=== PATIENT | male | born 1940 | race Caucasian/White ===

== ENCOUNTER → 2016-08-22 | Outpatient (CLI) | payer MEDICARE, OTHER ==
[2016-08-22 12:14] LABS: Basophils # (auto) 0 uL; Basophils % (auto) 0.5 % (0.0-2.0); Eosinophils # (auto) 0.1 uL; Eosinophils % (auto) 1.5 % (0.0-7.0); Hematocrit 46.5 % (41.0-53.0); Hemoglobin 15.2 g/dL (13.5-17.5); Lymphocytes # (auto) 1.6 uL; Lymphocytes % (auto) 27.1 % (10.0-50.0); Mean Corpuscular Hemoglobin 29.1 pg (28.0-32.0); Mean Corpuscular Hgb Conc. 32.6 g/dL (32.0-36.0); Mean Corpuscular Volume 89.3 fL (80.0-100.0); Mean Platelet Volume 9.8 fL (7.4-10.4); Monocytes # (auto) 0.6 uL; Monocytes % (auto) 9.6 % (0.0-12.0); Neutrophils # (auto) 3.6 uL; Neutrophils % (auto) 61.3 % (37.0-80.0); Platelet Count (auto) 271 10^3/uL (140-450); Red Cell Distribution Width 14.5 % (11.6-16.0); White Blood Cell 5.9 10^3/uL (4.4-10.8)
[2016-08-22 15:35] LABS: Albumin 4.3 g/dL (3.4-5.0); BUN/Creatinine Ratio 10.6; Bilirubin, Total 0.9 mg/dL (0.2-1.0); Calcium 9.1 mg/dL (8.5-10.1); Potassium 4.6 mmol/L (3.5-5.1); Total Protein 8.2 g/dL (6.4-8.2)
[2016-08-22 15:56] LABS: Bilirubin, Direct 0.3 mg/dL (0-0.2)
== END | disposition home or self-care (01) ==
LOC: LAB 08:02
PROVIDERS: ATTEND Internal Medicine Cardiovascular Disease
DX: I10 Essential (primary) hypertension (principal); E78.00 Pure hypercholesterolemia, unspecified; K74.1 Hepatic sclerosis; E11.9 Type 2 diabetes mellitus without complications; R97.20 Elevated prostate specific antigen [PSA]; R53.81 Other malaise; E03.9 Hypothyroidism, unspecified; D64.9 Anemia, unspecified; E55.9 Vitamin D deficiency, unspecified; N39.0 Urinary tract infection, site not specified
CPT/HCPCS: 36415; 80048; 80061; 80076; 83036; 84153; 84403; 84439; 84443; 85025

== ENCOUNTER → 2017-01-14 | Outpatient (CLI) | payer MEDICARE, OTHER ==
[2017-01-14 13:44] LABS: Calcium 9.2 mg/dL (8.5-10.1); Magnesium 2.2 mg/dL (1.6-2.6); Potassium 4.3 mmol/L (3.5-5.1)
== END | disposition home or self-care (01) ==
LOC: LAB 10:41
PROVIDERS: ATTEND Internal Medicine Cardiovascular Disease
DX: I10 Essential (primary) hypertension (principal); E83.42 Hypomagnesemia; R53.81 Other malaise
CPT/HCPCS: 36415; 80048; 83735; 84403

== ENCOUNTER → 2017-07-08 | Outpatient (CLI) | payer MEDICARE, OTHER ==
[2017-07-08 12:48] LABS: Urine Blood Negative /uL (Negative); Urine Specific Gravity 1.027 (1.001-1.035)
[2017-07-08 12:49] LABS: Basophils # (auto) 0 uL; Basophils % (auto) 0.8 % (0.0-2.0); Eosinophils # (auto) 0.1 uL; Eosinophils % (auto) 1.7 % (0.0-7.0); Hematocrit 44.7 % (41.0-53.0); Hemoglobin 14.9 g/dL (13.5-17.5); Lymphocytes # (auto) 1.7 uL; Lymphocytes % (auto) 30.2 % (10.0-50.0); Mean Corpuscular Hemoglobin 29.1 pg (28.0-32.0); Mean Corpuscular Hgb Conc. 33.3 g/dL (32.0-36.0); Mean Corpuscular Volume 87.6 fL (80.0-100.0); Monocytes # (auto) 0.8 uL; Monocytes % (auto) 13.7 % (0.0-12.0); Neutrophils % (auto) 53.6 % (37.0-80.0); Nucleated Red Blood Cells % 0.5 %; Platelet Count (auto) 205 10^3/uL (140-450); Red Blood Cells 5.11 10^6/uL (4.5-5.90); Red Cell Distribution Width 15.9 % (11.8-14.3); White Blood Cell 5.7 10^3/uL (4.4-10.8)
[2017-07-08 13:32] LABS: BUN/Creatinine Ratio 12.3; Bilirubin, Direct 0.1 mg/dL (0-0.2); Bilirubin, Total 0.4 mg/dL (0.2-1.0); Calcium 9.7 mg/dL (8.5-10.1); Potassium 4.4 mmol/L (3.5-5.1); Total Protein 7.6 g/dL (6.4-8.2)
== END | disposition home or self-care (01) ==
LOC: LAB 09:25
PROVIDERS: ATTEND Internal Medicine Cardiovascular Disease
DX: E78.00 Pure hypercholesterolemia, unspecified (principal); D64.9 Anemia, unspecified; I10 Essential (primary) hypertension; E11.9 Type 2 diabetes mellitus without complications; E55.9 Vitamin D deficiency, unspecified; E03.9 Hypothyroidism, unspecified; R53.81 Other malaise; R97.20 Elevated prostate specific antigen [PSA]; N39.0 Urinary tract infection, site not specified; K74.1 Hepatic sclerosis
CPT/HCPCS: 36415; 80048; 80061; 80076; 81003; 82306; 83036; 84153; 84443; 85025

== ENCOUNTER → 2017-08-21 | Outpatient (CLI) | payer MEDICARE, OTHER | END | disposition home or self-care (01) | LOC: Rad HDHVI 14:53 | PROVIDERS: ATTEND Internal Medicine Cardiovascular Disease | DX: R42 Dizziness and giddiness (principal); R55 Syncope and collapse; I10 Essential (primary) hypertension; E11.9 Type 2 diabetes mellitus without complications; E78.00 Pure hypercholesterolemia, unspecified; E78.5 Hyperlipidemia, unspecified | CPT/HCPCS: 93880 ==

== ENCOUNTER → 2017-10-21 | Outpatient (CLI) | payer MEDICARE, OTHER ==
[~2017-10-21] VITALS: Ht 188 cm; Wt 112.5 kg
== END | disposition home or self-care (01) ==
LOC: Rad HDHVI 09:23
PROVIDERS: ATTEND Internal Medicine
DX: I10 Essential (primary) hypertension (principal); E78.5 Hyperlipidemia, unspecified; E11.9 Type 2 diabetes mellitus without complications; H26.9 Unspecified cataract; I48.91 Unspecified atrial fibrillation
CPT/HCPCS: 78452; 93017; 96374; A9500

== ENCOUNTER → 2018-05-21 | Outpatient (CLI) | payer MEDICARE, OTHER ==
[2018-05-21 12:04] LABS: Basophils # (auto) 0.1 uL; Basophils % (auto) 1.2 % (0.0-2.0); Eosinophils # (auto) 0.1 uL; Eosinophils % (auto) 2.8 % (0.0-7.0); Hematocrit 45.1 % (41.0-53.0); Hemoglobin 14.7 g/dL (13.5-17.5); Lymphocytes # (auto) 1.1 uL; Lymphocytes % (auto) 23.3 % (10.0-50.0); Mean Corpuscular Hemoglobin 29.1 pg (28.0-32.0); Mean Corpuscular Hgb Conc. 32.6 g/dL (32.0-36.0); Mean Corpuscular Volume 89.4 fL (80.0-100.0); Monocytes # (auto) 0.6 uL; Monocytes % (auto) 11.5 % (0.0-12.0); Neutrophils % (auto) 61.2 % (37.0-80.0); Nucleated Red Blood Cells % 0.2 %; Platelet Count (auto) 165 10^3/uL (140-450); Red Blood Cells 5.05 10^6/uL (4.5-5.90); Red Cell Distribution Width 15.3 % (11.8-14.3); White Blood Cell 4.8 10^3/uL (4.4-10.8)
[2018-05-21 12:11] LABS: Potassium 4.5 mmol/L (3.5-5.1)
[2018-05-21 12:16] LABS: Free T4 (Free Thyroxine) 0.47 ng/dL (0.89-1.76); Prostate Specific Antigen 0.35 ng/mL (0.0-4.0)
[2018-05-21 12:22] LABS: BUN/Creatinine Ratio 8.2; Bilirubin, Direct 0.2 mg/dL (0-0.2); Bilirubin, Total 0.7 mg/dL (0.2-1.0)
== END | disposition home or self-care (01) ==
LOC: LAB 10:41
PROVIDERS: ATTEND Internal Medicine Cardiovascular Disease
DX: E78.5 Hyperlipidemia, unspecified (principal); E03.9 Hypothyroidism, unspecified; E55.9 Vitamin D deficiency, unspecified; E11.9 Type 2 diabetes mellitus without complications; C61 Malignant neoplasm of prostate; K74.1 Hepatic sclerosis; I10 Essential (primary) hypertension; D51.9 Vitamin B12 deficiency anemia, unspecified; D64.9 Anemia, unspecified
CPT/HCPCS: 36415; 80048; 80061; 80076; 82306; 83036; 84153; 84403; 84439; 84443; 85025

== ENCOUNTER → 2018-07-09 | Outpatient (CLI) | payer MEDICARE, BC | END | disposition home or self-care (01) | LOC: LAB 12:03 | PROVIDERS: ATTEND Internal Medicine Cardiovascular Disease | DX: E03.9 Hypothyroidism, unspecified (principal) | CPT/HCPCS: 36415; 84439; 84443 ==

== ENCOUNTER → 2018-09-24 | Outpatient (CLI) | payer MEDICARE, BC | END | disposition home or self-care (01) | LOC: LAB 08:54 | PROVIDERS: ATTEND Internal Medicine Cardiovascular Disease | DX: E03.9 Hypothyroidism, unspecified (principal) | CPT/HCPCS: 36415; 84443 ==

== ENCOUNTER → 2019-02-06 | Outpatient (CLI) | payer MEDICARE, BC ==
[2019-02-06 13:01] LABS: Urine Blood Negative /uL (Negative); Urine Specific Gravity 1.018 (1.001-1.035)
[2019-02-06 13:08] LABS: Basophils # (auto) 0 uL; Basophils % (auto) 1.1 % (0.0-2.0); Eosinophils # (auto) 0.1 uL; Eosinophils % (auto) 2.6 % (0.0-7.0); Hematocrit 41.6 % (41.0-53.0); Hemoglobin 13.9 g/dL (13.5-17.5); Lymphocytes # (auto) 1.2 uL; Lymphocytes % (auto) 28.8 % (10.0-50.0); Mean Corpuscular Hemoglobin 30.6 pg (28.0-32.0); Mean Corpuscular Hgb Conc. 33.5 g/dL (32.0-36.0); Mean Corpuscular Volume 91.1 fL (80.0-100.0); Monocytes # (auto) 0.5 uL; Monocytes % (auto) 11.9 % (0.0-12.0); Neutrophils # (auto) 2.3 uL; Neutrophils % (auto) 55.6 % (37.0-80.0); Nucleated Red Blood Cells % 0.1 %; Platelet Count (auto) 117 10^3/uL (140-450); Red Blood Cells 4.56 10^6/uL (4.5-5.90); Red Cell Distribution Width 15.1 % (11.8-14.3); White Blood Cell 4.2 10^3/uL (4.4-10.8)
[2019-02-06 16:22] LABS: Free T4 (Free Thyroxine) 1.06 ng/dL (0.89-1.76)
[2019-02-06 16:32] LABS: Prostate Specific Antigen 0.47 ng/mL (0.0-4.0)
== END | disposition home or self-care (01) ==
LOC: LAB 08:25
PROVIDERS: ATTEND Internal Medicine Cardiovascular Disease
DX: E03.9 Hypothyroidism, unspecified (principal); K90.9 Intestinal malabsorption, unspecified; C61 Malignant neoplasm of prostate; E29.1 Testicular hypofunction; N39.0 Urinary tract infection, site not specified; E11.9 Type 2 diabetes mellitus without complications; D51.9 Vitamin B12 deficiency anemia, unspecified; Z79.899 Other long term (current) drug therapy
CPT/HCPCS: 36415; 80053; 80061; 81003; 82306; 82607; 83036; 84153; 84403; 84439; 84443; 85025

== ENCOUNTER → 2019-07-10 | Outpatient (CLI) | payer MEDICARE, BC ==
[2019-07-10 12:14] LABS: Urine Blood Negative /uL (Negative); Urine Specific Gravity 1.019 (1.001-1.035)
[2019-07-10 12:18] LABS: Basophils # (auto) 0 uL; Basophils % (auto) 0.9 % (0.0-2.0); Eosinophils # (auto) 0.1 uL; Eosinophils % (auto) 2.2 % (0.0-7.0); Hemoglobin 13.6 g/dL (13.5-17.5); Lymphocytes # (auto) 1.2 uL; Lymphocytes % (auto) 31.7 % (10.0-50.0); Mean Corpuscular Hemoglobin 30.2 pg (28.0-32.0); Mean Corpuscular Hgb Conc. 33.1 g/dL (32.0-36.0); Mean Corpuscular Volume 91.2 fL (80.0-100.0); Monocytes # (auto) 0.5 uL; Monocytes % (auto) 13.3 % (0.0-12.0); Neutrophils % (auto) 51.9 % (37.0-80.0); Platelet Count (auto) 106 10^3/uL (140-450); Red Cell Distribution Width 14.8 % (11.8-14.3); White Blood Cell 3.8 10^3/uL (4.4-10.8)
[2019-07-10 12:37] LABS: Albumin 3.5 g/dL (3.4-5.0); Potassium 4.3 mmol/L (3.5-5.1)
[2019-07-10 12:41] LABS: Free T4 (Free Thyroxine) 1.3 ng/dL (0.89-1.76)
[2019-07-10 12:42] LABS: Prostate Specific Antigen 0.53 ng/mL (0.0-4.0)
[2019-07-10 12:44] LABS: BUN/Creatinine Ratio 11.3; Bilirubin, Total 0.4 mg/dL (0.2-1.0); Calcium 8.8 mg/dL (8.5-10.1); Total Protein 7.4 g/dL (6.4-8.2)
== END | disposition home or self-care (01) ==
LOC: LAB 08:01
PROVIDERS: ATTEND Internal Medicine Cardiovascular Disease
DX: C61 Malignant neoplasm of prostate (principal); E03.9 Hypothyroidism, unspecified; K90.9 Intestinal malabsorption, unspecified; E29.1 Testicular hypofunction; N39.0 Urinary tract infection, site not specified; D51.9 Vitamin B12 deficiency anemia, unspecified; Z79.899 Other long term (current) drug therapy
CPT/HCPCS: 36415; 80053; 80061; 81003; 82306; 82607; 83036; 84153; 84403; 84439; 84443; 85025

== ENCOUNTER → 2019-12-03 | Outpatient (CLI) | payer MEDICARE, BC | END | disposition home or self-care (01) | LOC: Rad HDHVI 08:00 | PROVIDERS: ATTEND Internal Medicine Cardiovascular Disease | DX: R00.2 Palpitations (principal); R07.89 Other chest pain; Z86.79 Personal history of other diseases of the circulatory system | CPT/HCPCS: 93306 ==

== ENCOUNTER → 2019-12-22 | Outpatient (CLI) | payer MEDICARE, BC ==
[~2019-12-22] VITALS: Ht 188 cm; Wt 111.1 kg
== END | disposition home or self-care (01) ==
LOC: Rad HDHVI 08:49
PROVIDERS: ATTEND Internal Medicine Cardiovascular Disease
DX: I10 Essential (primary) hypertension (principal); E11.9 Type 2 diabetes mellitus without complications; E78.00 Pure hypercholesterolemia, unspecified; R00.2 Palpitations; Z90.49 Acquired absence of other specified parts of digestive tract
CPT/HCPCS: 78452; 93017; 96374; A9500

== ENCOUNTER → 2020-08-29 | Outpatient (CLI) | payer MEDICARE, BC ==
[2020-08-29 12:36] LABS: Basophils # (auto) 0 10 ^3/uL (0-0.2); Eosinophils # (auto) 0.1 10 ^3/uL (0-0.8); Eosinophils % (auto) 2.9 % (0.0-7.0); Hematocrit 36.7 % (41.0-53.0); Hemoglobin 12.5 g/dL (13.5-17.5); Lymphocytes # (auto) 1.2 10 ^3/uL (0.4-5.4); Lymphocytes % (auto) 30.2 % (10.0-50.0); Mean Corpuscular Hgb Conc. 33.9 g/dL (32.0-36.0); Mean Corpuscular Volume 88.5 fL (80.0-100.0); Monocytes # (auto) 0.6 10 ^3/uL (0-1.3); Monocytes % (auto) 14.4 % (0.0-12.0); Neutrophils % (auto) 51.5 % (37.0-80.0); Nucleated Red Blood Cells % 0.1 %; Platelet Count (auto) 108 10^3/uL (140-450); Red Blood Cells 4.15 10^6/uL (4.5-5.90); Red Cell Distribution Width 15.7 % (11.8-14.3); White Blood Cell 3.9 10^3/uL (4.4-10.8)
[2020-08-29 12:44] LABS: Urine Blood Negative /uL (Negative); Urine Specific Gravity 1.012 (1.001-1.035)
[2020-08-29 12:51] LABS: Free T4 (Free Thyroxine) 0.91 ng/dL (0.89-1.76); Prostate Specific Antigen 0.36 ng/mL (0.0-4.0)
[2020-08-29 12:56] LABS: Albumin 3.7 g/dL (3.4-5.0); BUN/Creatinine Ratio 14.5; Bilirubin, Total 0.5 mg/dL (0.2-1.0); Calcium 9.6 mg/dL (8.5-10.1); Total Protein 7.6 g/dL (6.4-8.2)
== END | disposition home or self-care (01) ==
LOC: LAB 09:22
PROVIDERS: ATTEND Internal Medicine Cardiovascular Disease
DX: C61 Malignant neoplasm of prostate (principal); D51.3 Other dietary vitamin B12 deficiency anemia; I10 Essential (primary) hypertension; E11.9 Type 2 diabetes mellitus without complications; E55.9 Vitamin D deficiency, unspecified; D64.9 Anemia, unspecified; R00.2 Palpitations; R53.1 Weakness; R30.0 Dysuria
CPT/HCPCS: 36415; 80053; 80061; 81003; 82306; 82607; 83036; 84153; 84403; 84439; 84443; 85025

== ENCOUNTER → 2021-05-17 | Outpatient (CLI) | payer MEDICARE, BC ==
[~2021-05-17] VITALS: Ht 188 cm; Wt 111.1 kg
== END | disposition home or self-care (01) ==
LOC: Rad HDHVI 09:31
PROVIDERS: ATTEND Internal Medicine Cardiovascular Disease
DX: I48.91 Unspecified atrial fibrillation (principal); E11.9 Type 2 diabetes mellitus without complications; I10 Essential (primary) hypertension; E78.5 Hyperlipidemia, unspecified
CPT/HCPCS: 78452; 93017; 96374; A9500

== ENCOUNTER → 2021-06-26 | Outpatient (CLI) | payer MEDICARE, BC ==
[2021-06-26 09:34] LABS: Urine Blood Negative /uL (Negative); Urine Specific Gravity 1.013 (1.001-1.035)
[2021-06-26 09:41] LABS: Potassium 4.4 mmol/L (3.5-5.1)
[2021-06-26 09:52] LABS: Albumin 3.4 g/dL (3.4-5.0); BUN/Creatinine Ratio 8.5; Bilirubin, Total 0.5 mg/dL (0.2-1.0); Calcium 9.4 mg/dL (8.5-10.1); Total Protein 7.2 g/dL (6.4-8.2)
[2021-06-26 09:59] LABS: Basophils # (auto) 0 10 ^3/uL (0-0.2); Basophils % (auto) 1.2 % (0.0-2.0); Eosinophils # (auto) 0.1 10 ^3/uL (0-0.8); Eosinophils % (auto) 2.4 % (0.0-7.0); Hematocrit 35.1 % (41.0-53.0); Hemoglobin 11.6 g/dL (13.5-17.5); Lymphocytes # (auto) 0.9 10 ^3/uL (0.4-5.4); Lymphocytes % (auto) 26.4 % (10.0-50.0); Mean Corpuscular Hemoglobin 28.2 pg (28.0-32.0); Mean Corpuscular Hgb Conc. 32.9 g/dL (32.0-36.0); Mean Corpuscular Volume 85.7 fL (80.0-100.0); Monocytes # (auto) 0.5 10 ^3/uL (0-1.3); Monocytes % (auto) 14.3 % (0.0-12.0); Neutrophils # (auto) 1.8 10 ^3/uL (1.6-8.6); Neutrophils % (auto) 55.7 % (37.0-80.0); Nucleated Red Blood Cells % 0.2 %; Red Cell Distribution Width 16.4 % (11.8-14.3); White Blood Cell 3.3 10^3/uL (4.4-10.8)
[2021-06-26 10:01] LABS: INR 1.1 (0.9-1.15)
[2021-06-26 10:46] LABS: Prostate Specific Antigen 0.39 ng/mL (0.0-4.0)
[2021-06-27 13:28] LABS: Free T4 (Free Thyroxine) 1.12 ng/dL (0.89-1.76)
== END | disposition home or self-care (01) ==
LOC: LAB 08:21
PROVIDERS: ATTEND Internal Medicine Cardiovascular Disease
DX: C61 Malignant neoplasm of prostate (principal); E11.9 Type 2 diabetes mellitus without complications; D51.3 Other dietary vitamin B12 deficiency anemia; D64.9 Anemia, unspecified; E55.9 Vitamin D deficiency, unspecified; I10 Essential (primary) hypertension; I48.91 Unspecified atrial fibrillation; R00.2 Palpitations; R53.1 Weakness; R30.0 Dysuria
CPT/HCPCS: 36415; 80053; 80061; 81003; 82306; 82607; 83036; 84153; 84403; 84439; 84443; 85025; 85610; 85730

== ENCOUNTER → 2022-06-25 | Outpatient (CLI) | payer MEDICARE, BC | END | disposition home or self-care (01) | LOC: Rad HDHVI 11:16 | PROVIDERS: ATTEND Internal Medicine Cardiovascular Disease | DX: R06.02 Shortness of breath (principal); I70.0 Atherosclerosis of aorta; M47.814 Spondylosis without myelopathy or radiculopathy, thoracic region | CPT/HCPCS: 71046 ==

== ENCOUNTER → 2022-06-26 | Outpatient (CLI) | payer MEDICARE, BC ==
[2022-06-26 15:35] LABS: Urine Blood Negative /uL (Negative); Urine Specific Gravity 1.015 (1.001-1.035)
[2022-06-26 15:43] LABS: Basophils # (auto) 0 10 ^3/uL (0-0.2); Basophils % (auto) 1.2 % (0.0-2.0); Eosinophils # (auto) 0.1 10 ^3/uL (0-0.8); Hematocrit 34.3 % (41.0-53.0); Hemoglobin 11.1 g/dL (13.5-17.5); Lymphocytes % (auto) 26.3 % (10.0-50.0); Mean Corpuscular Hemoglobin 28.1 pg (28.0-32.0); Mean Corpuscular Hgb Conc. 32.5 g/dL (32.0-36.0); Mean Corpuscular Volume 86.4 fL (80.0-100.0); Monocytes # (auto) 0.5 10 ^3/uL (0-1.3); Monocytes % (auto) 13.7 % (0.0-12.0); Neutrophils % (auto) 55.8 % (37.0-80.0); Nucleated Red Blood Cells % 0.1 %; Red Blood Cells 3.97 10^6/uL (4.5-5.90); Red Cell Distribution Width 17.1 % (11.8-14.3); White Blood Cell 3.7 10^3/uL (4.4-10.8)
[2022-06-26 15:51] LABS: Potassium 4.1 mmol/L (3.5-5.1)
[2022-06-26 15:57] LABS: Free T4 (Free Thyroxine) 1.05 ng/dL (0.89-1.76); Prostate Specific Antigen 0.44 ng/mL (0.0-4.0)
[2022-06-26 16:02] LABS: Albumin 3.5 g/dL (3.4-5.0); BUN/Creatinine Ratio 13.7; Bilirubin, Total 0.4 mg/dL (0.2-1.0); Total Protein 7.2 g/dL (6.4-8.2)
== END | disposition home or self-care (01) ==
LOC: LAB 08:19
PROVIDERS: ATTEND Internal Medicine Cardiovascular Disease
DX: E11.9 Type 2 diabetes mellitus without complications (principal); E55.9 Vitamin D deficiency, unspecified
CPT/HCPCS: 36415; 80053; 80061; 81003; 82306; 82607; 83036; 84153; 84403; 84439; 84443; 85025

== ENCOUNTER → 2022-06-27 | Outpatient (CLI) | payer MEDICARE, BC ==
[~2022-06-27] MED LIST: IOHEXOL 350 MG/ML 100ML IJ ONE; READI-CAT 2 (BARIUM SULF)(VANILLA SMOOTHIE) 450ML ONE; SODIUM CHLORIDE 0.9% 500 ML IV ONE
[2022-06-27 11:00] VITALS: BP 145/77
[2022-06-27 13:23] VITALS: BP 132/68
== END | disposition home or self-care (01) ==
LOC: Rad HDHVI 10:55
PROVIDERS: ATTEND Internal Medicine Cardiovascular Disease
DX: K74.60 Unspecified cirrhosis of liver (principal); N28.1 Cyst of kidney, acquired; R16.1 Splenomegaly, not elsewhere classified; K44.9 Diaphragmatic hernia without obstruction or gangrene; K40.90 Unilateral inguinal hernia, without obstruction or gangrene, not specified as recurrent; K42.9 Umbilical hernia without obstruction or gangrene; I70.0 Atherosclerosis of aorta; M47.814 Spondylosis without myelopathy or radiculopathy, thoracic region; M47.817 Spondylosis without myelopathy or radiculopathy, lumbosacral region; R63.4 Abnormal weight loss; Z90.49 Acquired absence of other specified parts of digestive tract
CPT/HCPCS: 74177; 96360; 96361; G0463; Q9967; 96366

== ENCOUNTER → 2022-07-03 | Outpatient (CLI) | payer MEDICARE, BC | END | disposition home or self-care (01) | LOC: Rad HDHVI 13:54 | PROVIDERS: ATTEND Internal Medicine Cardiovascular Disease | DX: R07.89 Other chest pain (principal); R00.2 Palpitations; R06.02 Shortness of breath | CPT/HCPCS: 93306 ==

== ENCOUNTER 2023-07-10 06:55 | Day surgery (SDC) | payer MEDICARE, BC ==
[2023-07-08 12:08] LABS: Basophils # (auto) 0 10 ^3/uL (0-0.2); Eosinophils # (auto) 0.1 10 ^3/uL (0-0.8); Hemoglobin 10.2 g/dL (13.5-17.5); Lymphocytes # (auto) 0.7 10 ^3/uL (0.4-5.4); Mean Corpuscular Hemoglobin 25.2 pg (28.0-32.0); Monocytes # (auto) 0.6 10 ^3/uL (0-1.3); Monocytes % (auto) 12.1 % (0.0-12.0); Neutrophils # (auto) 3.2 10 ^3/uL (1.6-8.6); Nucleated Red Blood Cells % 0.1 %; White Blood Cell 4.6 10^3/uL (4.4-10.8)
[2023-07-08 12:10] LABS: Eosinophils % (auto) 2.7 % (0.0-7.0); Hematocrit 32.1 % (41.0-53.0); Lymphocytes % (auto) 15.2 % (10.0-50.0); Mean Corpuscular Hgb Conc. 31.9 g/dL (32.0-36.0); Red Blood Cells 4.06 10^6/uL (4.5-5.90)
[2023-07-08 12:19] LABS: Red Cell Distribution Width 20.3 % (11.8-14.3)
[2023-07-08 12:23] LABS: INR 1.23 (0.9-1.15); Partial Thromboplastin Time 26.9 SEC (24.5-34.5); Prothrombin Time 12.7 sec (9.3-11.8)
[2023-07-08 12:27] LABS: Urine Bacteria NONE SEEN /hpf (None Seen); Urine Blood Negative /uL (Negative); Urine Clarity Clear (Clear); Urine Color Yellow (Yellow); Urine Protein, UAD Negative (Negative); Urine Specific Gravity 1.013 (1.001-1.035); Urine Urobilinogen Normal (Negative); Urine WBC 48 /hpf (0 - 3); Urine pH 6.5 (5.0-8.0)
[2023-07-08 12:54] LABS: Alanine Aminotransferase 17 U/L (7-40); Albumin 3.7 g/dL (3.2-4.8); Alkaline Phosphatase 85 U/L (46-116); Anion Gap 5 (5-15); Aspartate Aminotransferase 32 U/L (13-40); BUN/Creatinine Ratio 10.7 (10.0-20.0); Bilirubin, Total 1.4 mg/dL (0.2-1.0); Blood Urea Nitrogen 16 mg/dL (9-23); Calcium 9.6 mg/dL (8.5-10.1); Carbon Dioxide 25 mmol/L (20-30); Chloride 106 mmol/L (98-107); Glucose 98 mg/dL (74-106); Potassium 4.9 mmol/L (3.5-5.1); Sodium 136 mmol/L (136-145); Total Protein 7.2 g/dL (5.7-8.2)
[~2023-07-10] VITALS: Ht 188 cm; Wt 97.1 kg
[~2023-07-10 06:55] MED LIST changes: +APIX5TAB PO; +FINE10TA PO; -IOHEXOL 350 MG/ML 100ML IJ ONE; +LEV100T PO; +LINA1TAB PO; +METF-490 PO; +PANC3600 PO; +PANT40TA2 PO; +PROP1TAB51 PO; -READI-CAT 2 (BARIUM SULF)(VANILLA SMOOTHIE) 450ML ONE; -SODIUM CHLORIDE 0.9% 500 ML IV ONE; +SOTA80TA PO
[2023-07-10] MEDS ORDERED: ceFAZolin 2 GM/D5W100ml 100 ML IV ONE (07:42)
[2023-07-10] MEDS ORDERED: SUCCINYLCHOLINE CHLORIDE 20 MG/ML 10ML VIAL IV ONE (09:12)
[2023-07-10] MEDS ORDERED: BUPIVACAINE 0.5% P/F INJ 10 ML VIAL ONE (09:13)
[2023-07-10] MEDS ORDERED: fentaNYL CITRATE 100 MCG/2 ML VL ONE (09:14)
[2023-07-10] MEDS ORDERED: PROPOFOL 10 MG/ML 20 ML IV ONE (09:17)
[2023-07-10] MEDS ORDERED: MEPERIDINE HCL (25 MG/ML) 1ML VIAL ONE (09:41)
[2023-07-10] MEDS ORDERED: ROCURONIUM 10MG/ML 10ML VIAL IV ONE (09:43)
[2023-07-10] MEDS ORDERED: SUGAMMADEX 200mg/2ml Vial (100MG/ML) IV ONE (10:14)
[2023-07-10] MEDS ORDERED: SODIUM CHLORIDE LOCK 10 ML ONE (10:22)
[2023-07-10] MEDS ORDERED: ePHEDrine SULFATE 50 MG/ML AMP ONE (10:26)
[2023-07-10 10:42] VITALS: TEMP 97.5; O2SAT 100
[2023-07-10 11:40] VITALS: BP 134/66; PULSE 59; RESP 12; O2SAT 99
[2023-07-31] MEDS ORDERED: LINA1TAB PO ×2 (14:16)
[2023-07-31] MEDS ORDERED: CHOL50007 PO ×2 (14:16)
[2023-07-31] MEDS ORDERED: [UNRECOGNIZED DRUG - CODE] PO (14:16)
[2023-07-31] MEDS ORDERED: [UNRECOGNIZED DRUG - CODE] TOP ×2 (14:16)
[2023-07-31] MEDS ORDERED: PROP1TAB51 PO ×2 (14:16)
[2023-07-31] MEDS ORDERED: ZOLP5TAB PO ×2 (14:16)
== END 2023-07-10 11:45 | disposition home or self-care (01) ==
LOC: SUR 06:55
PROVIDERS: ATTEND Surgery
DX: K40.90 Unilateral inguinal hernia, without obstruction or gangrene, not specified as recurrent (principal); I12.9 Hypertensive chronic kidney disease with stage 1 through stage 4 chronic kidney disease, or unspecified chronic kidney disease; E11.22 Type 2 diabetes mellitus with diabetic chronic kidney disease; N18.9 Chronic kidney disease, unspecified; I48.0 Paroxysmal atrial fibrillation; Z79.890 Hormone replacement therapy; Z79.84 Long term (current) use of oral hypoglycemic drugs; Z90.49 Acquired absence of other specified parts of digestive tract; Z79.899 Other long term (current) drug therapy; Z98.890 Other specified postprocedural states
CPT/HCPCS: 36415; 49505; 80053; 81001; 82962; 85025; 85610; 85730; 86850; 86900; 86901; 88302; C1781; J0330; J2175; J2704; J3010; J3490

== ENCOUNTER → 2023-07-17 | Outpatient (CLI) | payer MEDICARE, BC ==
[~2023-07-17] VITALS: Ht 30.5 cm; Wt 0.5 kg
[~2023-07-17] MED LIST changes: +PANC3600 OR; -PANC3600 PO
[2023-07-17 10:15] VITALS: BP 130/82; PULSE 96; RESP 18; O2SAT 96
[2023-07-17] MEDS: cefTRIAXone 1GM/50ML D5W 50 ML IV ONE ×2 (10:38)
[2023-07-17 10:54] VITALS: BP 125/66; PULSE 63; RESP 18; O2SAT 96
== END | disposition home or self-care (01) ==
LOC: CHF HDHVI 10:15
PROVIDERS: ATTEND Internal Medicine Cardiovascular Disease
DX: T81.49XA Infection following a procedure, other surgical site, initial encounter (principal); I12.9 Hypertensive chronic kidney disease with stage 1 through stage 4 chronic kidney disease, or unspecified chronic kidney disease; E11.22 Type 2 diabetes mellitus with diabetic chronic kidney disease; N18.9 Chronic kidney disease, unspecified; I48.0 Paroxysmal atrial fibrillation; Z79.84 Long term (current) use of oral hypoglycemic drugs; Z79.899 Other long term (current) drug therapy; Z90.49 Acquired absence of other specified parts of digestive tract; Y92.89 Other specified places as the place of occurrence of the external cause
CPT/HCPCS: 96365; G0463; J0696

== ENCOUNTER → 2023-07-31 | Outpatient (CLI) | payer MEDICARE, BC ==
[~2023-07-31] MED LIST changes: +CHOL50007 PO; -PANC3600 OR; +PANC3600 PO; +ZOLP5TAB PO; +[UNRECOGNIZED DRUG - CODE] PO; +[UNRECOGNIZED DRUG - CODE] TOP
[2023-07-31 14:15] VITALS: BP 137/63; PULSE 62; RESP 16; O2SAT 97
[2023-07-31 14:22] VITALS: BP 139/69; PULSE 60; RESP 16; O2SAT 97
== END | disposition home or self-care (01) ==
LOC: CHF HDHVI 14:14
PROVIDERS: ATTEND Internal Medicine Cardiovascular Disease
DX: Z01.818 Encounter for other preprocedural examination (principal); I48.91 Unspecified atrial fibrillation; R94.31 Abnormal electrocardiogram [ECG] [EKG]; K74.69 Other cirrhosis of liver; N18.30 Chronic kidney disease, stage 3 unspecified
CPT/HCPCS: 93005; G0463

== ENCOUNTER 2023-08-01 08:54 | Day surgery (SDC) | payer MEDICARE, BC ==
[2023-07-31 14:49] LABS: Basophils # (auto) 0.1 10 ^3/uL (0-0.2); Eosinophils # (auto) 0.2 10 ^3/uL (0-0.8); Lymphocytes # (auto) 0.8 10 ^3/uL (0.4-5.4); Monocytes # (auto) 0.7 10 ^3/uL (0-1.3); Neutrophils # (auto) 2.8 10 ^3/uL (1.6-8.6); Nucleated Red Blood Cells % 0.1 %; White Blood Cell 4.5 10^3/uL (4.4-10.8)
[2023-07-31 14:51] LABS: Basophils % (auto) 1.5 % (0.0-2.0); Eosinophils % (auto) 3.3 % (0.0-7.0); Hematocrit 30.6 % (41.0-53.0); Hemoglobin 9.7 g/dL (13.5-17.5); Lymphocytes % (auto) 17.7 % (10.0-50.0); Mean Corpuscular Hemoglobin 25.8 pg (28.0-32.0); Mean Corpuscular Hgb Conc. 31.6 g/dL (32.0-36.0); Mean Corpuscular Volume 81.6 fL (80.0-100.0); Monocytes % (auto) 14.8 % (0.0-12.0); Neutrophils % (auto) 62.7 % (37.0-80.0); Red Blood Cells 3.75 10^6/uL (4.5-5.90)
[2023-07-31 14:54] LABS: Red Cell Distribution Width 21.3 % (11.8-14.3)
[2023-07-31 15:10] LABS: INR 1.22 (0.9-1.15); Partial Thromboplastin Time 27.5 SEC (24.5-34.5); Prothrombin Time 12.6 sec (9.3-11.8)
[2023-07-31 15:26] LABS: Chloride 107 mmol/L (98-107); Potassium 4.6 mmol/L (3.5-5.1)
[2023-07-31 15:27] LABS: Anion Gap 6 (5-15); Carbon Dioxide 25 mmol/L (20-30); Sodium 138 mmol/L (136-145)
[2023-07-31 15:28] LABS: Calcium 9.2 mg/dL (8.5-10.1)
[2023-07-31 15:33] LABS: BUN/Creatinine Ratio 10.5 (10.0-20.0); Blood Urea Nitrogen 14 mg/dL (9-23); Glucose 117 mg/dL (74-106)
[~2023-08-01] VITALS: Ht 188 cm; Wt 103.4 kg
[2023-08-01 09:21] VITALS: BP 128/71; PULSE 59; RESP 16; TEMP 97.6; O2SAT 98
[2023-08-01 10:25] VITALS: BP 114/64; PULSE 63; RESP 16; O2SAT 98
[2023-08-01 10:28] VITALS: BP 122/70; PULSE 62; RESP 15; O2SAT 99
[2023-08-01 10:35] VITALS: BP 119/75; PULSE 57; RESP 17; O2SAT 97
[2023-08-01 10:45] VITALS: BP 126/72; PULSE 58; RESP 15; O2SAT 96
[2023-08-01 11:07] VITALS: BP 117/75; PULSE 60; RESP 18; O2SAT 97
== END 2023-08-01 11:13 | disposition home or self-care (01) ==
LOC: CATH 08:54
PROVIDERS: ATTEND Internal Medicine Cardiovascular Disease
DX: K70.31 Alcoholic cirrhosis of liver with ascites (principal); Z72.89 Other problems related to lifestyle; Z79.84 Long term (current) use of oral hypoglycemic drugs
CPT/HCPCS: 36415; 49083; 80048; 85025; 85610; 85730

== ENCOUNTER → 2023-08-09 | Outpatient (CLI) | payer MEDICARE, BC ==
[~2023-08-09] MED LIST changes: +READI-CAT 2 (BARIUM SULF)(VANILLA SMOOTHIE) 450ML ONE; -[UNRECOGNIZED DRUG - CODE] PO
== END | disposition home or self-care (01) ==
LOC: Rad HDHVI 13:14
PROVIDERS: ATTEND Internal Medicine Cardiovascular Disease
DX: K40.90 Unilateral inguinal hernia, without obstruction or gangrene, not specified as recurrent (principal); K44.9 Diaphragmatic hernia without obstruction or gangrene; J90 Pleural effusion, not elsewhere classified; J98.11 Atelectasis; K76.89 Other specified diseases of liver; K74.60 Unspecified cirrhosis of liver; I85.00 Esophageal varices without bleeding; N28.1 Cyst of kidney, acquired; K57.30 Diverticulosis of large intestine without perforation or abscess without bleeding; I70.0 Atherosclerosis of aorta; R60.0 Localized edema; M47.816 Spondylosis without myelopathy or radiculopathy, lumbar region; M51.35 Other intervertebral disc degeneration, thoracolumbar region; Z90.49 Acquired absence of other specified parts of digestive tract
CPT/HCPCS: 74176

== ENCOUNTER → 2023-11-25 | Outpatient (CLI) | payer MEDICARE, BC ==
[~2023-11-25] MED LIST changes: -READI-CAT 2 (BARIUM SULF)(VANILLA SMOOTHIE) 450ML ONE; +TRAM50TA2 PO
[2023-11-25 14:15] VITALS: BP 123/72; PULSE 64; RESP 16; O2SAT 97
[2023-11-25 14:28] VITALS: BP 120/68; PULSE 59; RESP 16; O2SAT 97
== END | disposition home or self-care (01) ==
LOC: Rad HDHVI 14:01
PROVIDERS: ATTEND Internal Medicine Cardiovascular Disease
DX: Z01.818 Encounter for other preprocedural examination (principal); K74.69 Other cirrhosis of liver; I51.7 Cardiomegaly; M47.814 Spondylosis without myelopathy or radiculopathy, thoracic region; R94.31 Abnormal electrocardiogram [ECG] [EKG]
CPT/HCPCS: 71046; 93005; G0463

== ENCOUNTER 2023-11-28 07:03 | Day surgery (SDC) | payer MEDICARE, BC ==
[2023-11-25 15:04] LABS: Basophils # (auto) 0.1 10 ^3/uL (0-0.2); Basophils % (auto) 1.2 % (0.0-2.0); Eosinophils # (auto) 0.2 10 ^3/uL (0-0.8); Eosinophils % (auto) 3.1 % (0.0-7.0); Hematocrit 34.1 % (41.0-53.0); Hemoglobin 11.2 g/dL (13.5-17.5); Lymphocytes # (auto) 0.8 10 ^3/uL (0.4-5.4); Lymphocytes % (auto) 14.6 % (10.0-50.0); Mean Corpuscular Hemoglobin 28.7 pg (28.0-32.0); Mean Corpuscular Hgb Conc. 32.9 g/dL (32.0-36.0); Mean Corpuscular Volume 87.4 fL (80.0-100.0); Monocytes # (auto) 0.9 10 ^3/uL (0-1.3); Monocytes % (auto) 15.8 % (0.0-12.0); Neutrophils # (auto) 3.8 10 ^3/uL (1.6-8.6); Neutrophils % (auto) 65.3 % (37.0-80.0); Red Blood Cells 3.91 10^6/uL (4.5-5.90); Red Cell Distribution Width 18.5 % (11.8-14.3); White Blood Cell 5.8 10^3/uL (4.4-10.8)
[2023-11-25 15:32] LABS: INR 1.26 (0.9-1.15); Partial Thromboplastin Time 27.4 SEC (24.5-34.5); Prothrombin Time 13.1 sec (9.3-11.8)
[2023-11-25 15:40] LABS: Chloride 106 mmol/L (98-107); Potassium 4.5 mmol/L (3.5-5.1); Sodium 136 mmol/L (136-145)
[2023-11-25 15:41] LABS: Anion Gap 5 (5-15); Calcium 9.5 mg/dL (8.5-10.1); Carbon Dioxide 25 mmol/L (20-30)
[2023-11-25 15:46] LABS: BUN/Creatinine Ratio 11.2 (10.0-20.0); Blood Urea Nitrogen 14 mg/dL (9-23); Glucose 81 mg/dL (74-106)
[~2023-11-28 07:03] MED LIST changes: -FINE10TA PO; -PANC3600 PO; -PANT40TA2 PO; -TRAM50TA2 PO
[2023-11-28 08:17] VITALS: BP 127/69; PULSE 60; RESP 18; TEMP 98; O2SAT 97
[2023-11-28 08:38] VITALS: BP 122/60; PULSE 57; RESP 20; O2SAT 97
[2023-11-28 08:41] VITALS: BP 128/61; PULSE 59; RESP 16; O2SAT 98
[2023-11-28 09:02] VITALS: BP 119/68; PULSE 56; RESP 17; O2SAT 95
[2023-11-28 09:23] VITALS: BP 118/65; PULSE 59; RESP 18; O2SAT 96
[2023-11-28 09:57] VITALS: BP 121/63; PULSE 58; RESP 16; O2SAT 96
== END 2023-11-28 10:14 | disposition home or self-care (01) ==
LOC: CATH 07:03
PROVIDERS: ATTEND Internal Medicine Cardiovascular Disease
DX: K70.31 Alcoholic cirrhosis of liver with ascites (principal); I48.91 Unspecified atrial fibrillation; E11.40 Type 2 diabetes mellitus with diabetic neuropathy, unspecified; E11.21 Type 2 diabetes mellitus with diabetic nephropathy; E03.9 Hypothyroidism, unspecified; K21.9 Gastro-esophageal reflux disease without esophagitis; I10 Essential (primary) hypertension; Z79.890 Hormone replacement therapy; Z79.84 Long term (current) use of oral hypoglycemic drugs; Z79.899 Other long term (current) drug therapy; Z98.890 Other specified postprocedural states
CPT/HCPCS: 36415; 49083; 80048; 85025; 85610; 85730

== ENCOUNTER 2023-12-03 14:42 | Inpatient (IN) | payer MEDICARE, BC ==
[~2023-12-03] VITALS: Ht 188 cm; Wt 100.1 kg
[2023-12-03] MEDS: LIDOCAINE VISCOUS 2% 15ML UD PO ONE (16:05)
[2023-12-03] MEDS: SODIUM CHLORIDE 0.9% 1,000 ML IV ONE (16:09)
[2023-12-03 16:18] LABS: Basophils # (auto) 0.1 10 ^3/uL (0-0.2); Eosinophils # (auto) 0.1 10 ^3/uL (0-0.8); Eosinophils % (auto) 2.6 % (0.0-7.0); Hematocrit 33.8 % (41.0-53.0); Lymphocytes # (auto) 0.7 10 ^3/uL (0.4-5.4); Mean Corpuscular Hemoglobin 28.7 pg (28.0-32.0); Mean Corpuscular Hgb Conc. 32.5 g/dL (32.0-36.0); Mean Corpuscular Volume 88.3 fL (80.0-100.0); Monocytes # (auto) 0.7 10 ^3/uL (0-1.3); Monocytes % (auto) 12.9 % (0.0-12.0); Neutrophils # (auto) 3.6 10 ^3/uL (1.6-8.6); Neutrophils % (auto) 70.5 % (37.0-80.0); Nucleated Red Blood Cells % 0.1 %; Red Blood Cells 3.83 10^6/uL (4.5-5.90); Red Cell Distribution Width 18.2 % (11.8-14.3); White Blood Cell 5.1 10^3/uL (4.4-10.8)
[2023-12-03 16:38] LABS: Alanine Aminotransferase 22 U/L (7-40); Albumin 3.1 g/dL (3.2-4.8); Alkaline Phosphatase 98 U/L (46-116); Anion Gap 7 (5-15); Aspartate Aminotransferase 30 U/L (13-40); BUN/Creatinine Ratio 11.2 (10.0-20.0); Bilirubin, Total 1.8 mg/dL (0.2-1.0); Blood Urea Nitrogen 15 mg/dL (9-23); Calcium 9.1 mg/dL (8.5-10.1); Carbon Dioxide 22 mmol/L (20-30); Chloride 109 mmol/L (98-107); Glucose 71 mg/dL (74-106); Potassium 4.2 mmol/L (3.5-5.1); Sodium 138 mmol/L (136-145); Total Protein 6.6 g/dL (5.7-8.2)
[2023-12-03] MEDS ORDERED: ACETAMINOPHEN 325 MG TAB PO PRN (17:45)
[2023-12-03] MEDS ORDERED: ONDANSETRON HCL 4 MG/2 ML VIAL IV PRN (17:45)
[2023-12-03] MEDS ORDERED: DOCUSATE SOD 100 MG CAP PO PRN (17:45)
[2023-12-03] MEDS ORDERED: HYDROcodone-ACET 5/325MG TAB PO PRN (17:45)
[2023-12-03] MEDS ORDERED: DEXTROSE (50%) 50ML SYRG IV PRN (17:45)
[2023-12-03] MEDS: ACCU-CHEK COMFORT CURVE STRIP VI SCH (18:00)
[2023-12-03] MEDS: InsuLIN REG 1unit/0.01ml Soln (100units/ml) SC SCH (18:00)
[2023-12-03] MEDS ORDERED: NITROGLYCERIN 0.4 MG SL TAB SL PRN (19:00)
[2023-12-03] MEDS ORDERED: MORPHINE SULFATE INJ 2 MG/ml SYRG IV PRN (19:00)
[2023-12-03] MEDS: D5W/SOD CHLO 0.9% 1,000 ML IV SCH (19:04)
[2023-12-04] VITALS (9 sets, daily range): BP systolic 97–130; BP diastolic 39–82; PULSE 49–106; RESP 16–82; TEMP 97–98.3; O2SAT 92–99
[2023-12-04] MEDS: LEVOTHYROXINE SODIUM 100 MCG TAB PO SCH (06:22)
[2023-12-04 06:47] LABS: Basophils # (auto) 0 10 ^3/uL (0-0.2); Basophils % (auto) 1.1 % (0.0-2.0); Eosinophils # (auto) 0.1 10 ^3/uL (0-0.8); Eosinophils % (auto) 3.8 % (0.0-7.0); Hematocrit 31.2 % (41.0-53.0); Lymphocytes # (auto) 0.5 10 ^3/uL (0.4-5.4); Lymphocytes % (auto) 16.7 % (10.0-50.0); Mean Corpuscular Hemoglobin 28.9 pg (28.0-32.0); Mean Corpuscular Hgb Conc. 32.2 g/dL (32.0-36.0); Monocytes # (auto) 0.4 10 ^3/uL (0-1.3); Monocytes % (auto) 13.6 % (0.0-12.0); Neutrophils % (auto) 64.8 % (37.0-80.0); Nucleated Red Blood Cells % 0.2 %; Red Blood Cells 3.46 10^6/uL (4.5-5.90); Red Cell Distribution Width 18.5 % (11.8-14.3); White Blood Cell 3.2 10^3/uL (4.4-10.8)
[2023-12-04 07:07] LABS: Alanine Aminotransferase 17 U/L (7-40); Alkaline Phosphatase 84 U/L (46-116); Anion Gap 8 (5-15); BUN/Creatinine Ratio 12.8 (10.0-20.0); Blood Urea Nitrogen 16 mg/dL (9-23); Carbon Dioxide 22 mmol/L (20-30); Chloride 112 mmol/L (98-107); Glucose 82 mg/dL (74-106); Potassium 4.1 mmol/L (3.5-5.1); Sodium 142 mmol/L (136-145)
[2023-12-04 07:08] LABS: Albumin 2.8 g/dL (3.2-4.8); Aspartate Aminotransferase 26 U/L (13-40); Bilirubin, Total 1.5 mg/dL (0.2-1.0)
[2023-12-04] MEDS: D5W/SOD CHLO 0.9% 1,000 ML IV SCH (19:15)
[2023-12-04] MEDS ORDERED: ZOLPIDEM TARTRATE 5 MG TAB PO PRN (19:30)
[2023-12-04 21:09] LABS: INR 1.33 (0.9-1.15); Partial Thromboplastin Time 27.6 SEC (24.5-34.5); Prothrombin Time 13.8 sec (9.3-11.8)
[2023-12-04] MEDS: ENOXAPARIN SOD 40 MG/0.4 ML SYRINGE SC ONE (21:44)
[2023-12-05 01:00] VITALS: BP 103/64; PULSE 47; RESP 18; TEMP 97.4; O2SAT 98
[2023-12-05 05:00] VITALS: BP 111/58; PULSE 62; RESP 18; TEMP 97.4; O2SAT 96
[2023-12-05] MEDS ORDERED: LEVOTHYROXINE SODIUM 100 MCG TAB PO SCH (07:00)
[2023-12-05 07:03] LABS: Anion Gap 7 (5-15); Carbon Dioxide 23 mmol/L (20-30); Chloride 109 mmol/L (98-107); Potassium 3.7 mmol/L (3.5-5.1); Sodium 139 mmol/L (136-145)
[2023-12-05 07:04] LABS: Calcium 8.5 mg/dL (8.5-10.1)
[2023-12-05 07:09] LABS: BUN/Creatinine Ratio 12.5 (10.0-20.0); Blood Urea Nitrogen 14 mg/dL (9-23); Glucose 108 mg/dL (74-106); Magnesium 1.5 mg/dL (1.6-2.6)
[2023-12-05 07:22] LABS: Basophils # (auto) 0 10 ^3/uL (0-0.2); Basophils % (auto) 1.3 % (0.0-2.0); Eosinophils # (auto) 0.1 10 ^3/uL (0-0.8); Eosinophils % (auto) 3.3 % (0.0-7.0); Hemoglobin 10.2 g/dL (13.5-17.5); Lymphocytes # (auto) 0.5 10 ^3/uL (0.4-5.4); Lymphocytes % (auto) 15.8 % (10.0-50.0); Mean Corpuscular Hemoglobin 29.4 pg (28.0-32.0); Mean Corpuscular Hgb Conc. 32.9 g/dL (32.0-36.0); Mean Corpuscular Volume 89.2 fL (80.0-100.0); Monocytes # (auto) 0.4 10 ^3/uL (0-1.3); Monocytes % (auto) 13.2 % (0.0-12.0); Neutrophils # (auto) 2.2 10 ^3/uL (1.6-8.6); Neutrophils % (auto) 66.4 % (37.0-80.0); Red Blood Cells 3.48 10^6/uL (4.5-5.90); Red Cell Distribution Width 18.1 % (11.8-14.3); White Blood Cell 3.3 10^3/uL (4.4-10.8)
[2023-12-05 09:00] VITALS: BP 114/57; PULSE 57; RESP 14; TEMP 97.8; O2SAT 96
[2023-12-05] MEDS: MAGNESIUM OXIDE 400 MG TAB PO ONE (10:30)
[2023-12-05] MEDS: ENOXAPARIN SOD 40 MG/0.4 ML SYRINGE SC SCH (10:31)
[2023-12-05] MEDS: CHOLECALCIFEROL (VITD3) 1,000UNIT=25mCg TAB PO SCH (10:31)
[2023-12-05 13:00] VITALS: BP 149/72; PULSE 83; RESP 18; TEMP 97.4; O2SAT 96
[2023-12-05] MEDS ORDERED: PANT40TA2 PO (14:20)
[2023-12-05] MEDS ORDERED: [UNRECOGNIZED DRUG - CODE] PO (14:20)
[2023-12-05 17:00] VITALS: BP 115/66; PULSE 59; RESP 14; TEMP 98.1; O2SAT 97
[2023-12-23] MEDS ORDERED: SPIR25TA PO (16:07)
== END 2023-12-05 17:47 | disposition home or self-care (01) | DRG 252 ==
LOC: ER 14:42 → OVERFLOW 19:06 → WEST WING 23:56
PROVIDERS: ADMIT Internal Medicine; ATTEND Internal Medicine
DX: K91.89 Other postprocedural complications and disorders of digestive system (principal); E11.649 Type 2 diabetes mellitus with hypoglycemia without coma; K74.69 Other cirrhosis of liver; R13.19 Other dysphagia; I48.20 Chronic atrial fibrillation, unspecified; E86.0 Dehydration; E03.9 Hypothyroidism, unspecified; Z79.4 Long term (current) use of insulin; Z79.899 Other long term (current) drug therapy; Y84.8 Other medical procedures as the cause of abnormal reaction of the patient, or of later complication, without mention of misadventure at the time of the procedure; Y92.89 Other specified places as the place of occurrence of the external cause
CPT/HCPCS: 36415; 71045; 71046; 80048; 80053; 82962; 83735; 84443; 85025; 85610; 85730; 96361; 96365; G0378; J7042

== ENCOUNTER → 2023-12-23 | Outpatient (CLI) | payer MEDICARE, BC ==
[~2023-12-23] MED LIST changes: +PANT40TA2 PO; +SPIR25TA PO; +[UNRECOGNIZED DRUG - CODE] PO
[2023-12-23 14:00] VITALS: BP 139/85; PULSE 67; RESP 20; O2SAT 99
[2023-12-23 14:11] VITALS: BP 131/83; PULSE 76; RESP 18; O2SAT 99
== END | disposition home or self-care (01) ==
LOC: Rad HDHVI 13:56
PROVIDERS: ATTEND Internal Medicine Cardiovascular Disease
DX: Z01.818 Encounter for other preprocedural examination (principal); R18.8 Other ascites; R14.0 Abdominal distension (gaseous); K74.69 Other cirrhosis of liver; J90 Pleural effusion, not elsewhere classified; R91.8 Other nonspecific abnormal finding of lung field; R94.31 Abnormal electrocardiogram [ECG] [EKG]
CPT/HCPCS: 71046; 93005; G0463

== ENCOUNTER 2023-12-26 09:05 | Day surgery (SDC) | payer MEDICARE, BC ==
[2023-12-23 15:09] LABS: Basophils # (auto) 0.1 10 ^3/uL (0-0.2); Basophils % (auto) 0.8 % (0.0-2.0); Eosinophils # (auto) 0.2 10 ^3/uL (0-0.8); Eosinophils % (auto) 2.6 % (0.0-7.0); Hematocrit 33.3 % (41.0-53.0); Lymphocytes # (auto) 0.7 10 ^3/uL (0.4-5.4); Lymphocytes % (auto) 11.3 % (10.0-50.0); Mean Corpuscular Hemoglobin 29.5 pg (28.0-32.0); Mean Corpuscular Hgb Conc. 33.2 g/dL (32.0-36.0); Neutrophils # (auto) 4.5 10 ^3/uL (1.6-8.6); Neutrophils % (auto) 70.3 % (37.0-80.0); Nucleated Red Blood Cells % 0.2 %; Red Blood Cells 3.74 10^6/uL (4.5-5.90); Red Cell Distribution Width 18.3 % (11.8-14.3); White Blood Cell 6.4 10^3/uL (4.4-10.8)
[2023-12-23 15:25] LABS: Chloride 107 mmol/L (98-107); Potassium 4.7 mmol/L (3.5-5.1); Sodium 136 mmol/L (136-145)
[2023-12-23 15:26] LABS: Anion Gap 5 (5-15); Calcium 8.8 mg/dL (8.7-10.4); Carbon Dioxide 24 mmol/L (20-30)
[2023-12-23 15:31] LABS: BUN/Creatinine Ratio 12.1 (10.0-20.0); Blood Urea Nitrogen 15 mg/dL (9-23); Glucose 98 mg/dL (74-106)
[2023-12-24 11:00] LABS: INR 1.22 (0.9-1.15); Partial Thromboplastin Time 28.5 SEC (24.5-34.5); Prothrombin Time 12.7 sec (9.3-11.8)
[~2023-12-26] VITALS: Ht 188 cm; Wt 104.8 kg
[~2023-12-26 09:05] MED LIST changes: -PANT40TA2 PO
== END 2023-12-26 12:30 | disposition home or self-care (01) ==
LOC: CATH 09:05
PROVIDERS: ATTEND Internal Medicine Cardiovascular Disease
DX: K70.31 Alcoholic cirrhosis of liver with ascites (principal); I10 Essential (primary) hypertension; Z81.1 Family history of alcohol abuse and dependence
CPT/HCPCS: 36415; 49084; 80048; 85025; 85610; 85730; 99152

== ENCOUNTER 2024-01-14 08:45 | Day surgery (SDC) | payer MEDICARE, BC ==
[2024-01-13 11:39] LABS: Basophils # (auto) 0.1 10 ^3/uL (0-0.2); Eosinophils # (auto) 0.2 10 ^3/uL (0-0.8); Eosinophils % (auto) 3.2 % (0.0-7.0); Hematocrit 36.1 % (41.0-53.0); Hemoglobin 11.9 g/dL (13.5-17.5); Lymphocytes # (auto) 0.9 10 ^3/uL (0.4-5.4); Lymphocytes % (auto) 14.4 % (10.0-50.0); Mean Corpuscular Hemoglobin 30.2 pg (28.0-32.0); Mean Corpuscular Volume 91.6 fL (80.0-100.0); Monocytes # (auto) 0.7 10 ^3/uL (0-1.3); Neutrophils # (auto) 4.2 10 ^3/uL (1.6-8.6); Neutrophils % (auto) 69.4 % (37.0-80.0); Nucleated Red Blood Cells % 0.1 %; Red Blood Cells 3.94 10^6/uL (4.5-5.90); Red Cell Distribution Width 19.4 % (11.8-14.3); White Blood Cell 6.1 10^3/uL (4.4-10.8)
[2024-01-13 11:54] LABS: INR 1.15 (0.9-1.15); Partial Thromboplastin Time 26.3 SEC (24.5-34.5); Prothrombin Time 12.1 sec (9.3-11.8)
[2024-01-13 11:56] LABS: Chloride 108 mmol/L (98-107); Sodium 137 mmol/L (136-145)
[2024-01-13 11:57] LABS: Anion Gap 4 (5-15); Calcium 9.3 mg/dL (8.7-10.4); Carbon Dioxide 25 mmol/L (20-30)
[2024-01-13 12:02] LABS: BUN/Creatinine Ratio 12.4 (10.0-20.0); Blood Urea Nitrogen 18 mg/dL (9-23); Glucose 101 mg/dL (74-106)
[~2024-01-14] VITALS: Ht 188 cm; Wt 102.5 kg
[~2024-01-14 08:45] MED LIST changes: -LEV100T PO; +LEVO-849 PO; +RIFA550T PO
[2024-01-14 13:50] VITALS: BP 117/76; PULSE 54; RESP 18; TEMP 98; O2SAT 100
[2024-01-14 14:00] VITALS: BP 113/70; PULSE 55; RESP 16; O2SAT 100
[2024-01-14 14:15] VITALS: BP 109/67; PULSE 55; RESP 18; O2SAT 100
[2024-01-14 14:30] VITALS: BP 114/71; PULSE 65; RESP 20; O2SAT 99
[2024-01-14 15:00] VITALS: BP 127/84; PULSE 64; RESP 16; O2SAT 98
== END 2024-01-14 15:15 | disposition home or self-care (01) ==
LOC: CATH 08:45
PROVIDERS: ATTEND Internal Medicine Cardiovascular Disease
DX: K70.31 Alcoholic cirrhosis of liver with ascites (principal); I48.91 Unspecified atrial fibrillation; E11.42 Type 2 diabetes mellitus with diabetic polyneuropathy; E03.9 Hypothyroidism, unspecified; I10 Essential (primary) hypertension; Z79.890 Hormone replacement therapy; Z79.84 Long term (current) use of oral hypoglycemic drugs
CPT/HCPCS: 36415; 49083; 49084; 80048; 85025; 85610; 85730

== ENCOUNTER 2024-01-30 08:53 | Day surgery (SDC) | payer MEDICARE, BC ==
[~2024-01-30] VITALS: Ht 188 cm; Wt 95.3 kg
[2024-01-30] VITALS (8 sets, daily range): BP systolic 94–110; BP diastolic 50–69; PULSE 57–69; RESP 11–15; TEMP 98.4; O2SAT 93–100
[2024-01-30] MEDS ORDERED: cefTRIAXone SOD 1,000 MG VL IV ONE (11:15)
[2024-01-30] MEDS ORDERED: cefTRIAXone 1GM/50ML D5W 50 ML IV ONE (11:31)
[2024-01-30] MEDS: cefTRIAXone 1GM/50ML D5W 50 ML IV ONE (11:36)
[2024-02-07] MEDS ORDERED: TRIA0.25 PO (13:58)
== END 2024-01-30 12:20 | disposition home or self-care (01) ==
LOC: CATH 08:53
PROVIDERS: ATTEND Internal Medicine Cardiovascular Disease
DX: K70.31 Alcoholic cirrhosis of liver with ascites (principal); I10 Essential (primary) hypertension; Z79.899 Other long term (current) drug therapy
CPT/HCPCS: 49083; J0696; 49084